=== PATIENT | male | born 1970 | race Caucasian/White ===

== ENCOUNTER 2023-04-02 11:04 | Emergency (ER) | payer SELFPAY ==
[~2023-04-02] VITALS: Ht 170.2 cm; Wt 95.0 kg
[~2023-04-02 11:04] MED LIST: AMOXICILLIN500 MG PO; CIPRO500 MG OR; CLEOCIN150 M1 PO; FLAGYL500 MG OR; LORTAB 5 OR; MOBIC7.5 MG OR; NO; PERCOCET 5/325M1 TAB OR; ULTRAM50 MG OR
[2023-04-02 11:30] VITALS: BP 136/102
[2023-04-02 12:00] VITALS: BP 137/92
[2023-04-02 12:30] VITALS: BP 141/91
[2023-04-02 12:33] LABS: BASO% 0.2 % (0-3); EOS% 0.4 % (0-8); HEMATOCRIT 45.7 % (39.0-50.0); HEMOGLOBIN 15.5 g/dl (14.0-18.0); IMMATURE GRANULOCYTES 0.5 % (0.0-5.0); LYMPH% 5.6 % (15-41); MEAN CELL VOLUME 92.9 fL CALC (80.0-100.0); MEAN CORPUSCULAR HGB 31.5 pG CALC (26.0-32.0); MEAN CORPUSCULAR HGB CONC 33.9 g/dL CAL (32.0-36.0); NEUT# 9.45 thou/uL (1.82-7.42); NEUT% 84.3 % (42-76); RED BLOOD COUNT 4.92 mill/uL (4.70-6.10); RED CELL DISTRI WIDTH 13.1 % (11.5-15.5)
[2023-04-02 12:49] LABS: ALKALINE PHOSPHATASE 71 u/l (38-126); BILIRUBIN, TOTAL 0.8 mg/dL (0.2-1.3); BUN 12 mg/dL (9-20); BUN/CREATININE RATIO 11 (12-20 (CALC)); CHLORIDE 106 mmol/l (95-108); CREATININE 1.1 mg/dL (0.7-1.3); GFR FOR AFR.AMER. > 60 ML/MIN (>=60 (CALC)); GFR OTHER RACES > 60 ML/MIN (>=60 (CALC)); SODIUM 137 mmol/l (137-146); TOTAL PROTEIN 8.3 g/dL (6.3-8.2)
[2023-04-02 12:55] LABS: ALBUMIN 4.5 g/dL (3.2-5.0); ANION GAP 16 (6-22 (CALC)); CARBON DIOXIDE 19 mmol/l (22-30); POTASSIUM 3.9 mmol/l (3.5-5.1); SGOT/AST 42 u/l (17-59)
[2023-04-02 13:00] VITALS: BP 129/69
[2023-04-02 13:58] VITALS: BP 142/95
[2023-04-02 14:01] VITALS: BP 142/95
[2023-04-02] MEDS ORDERED: ZITHROMAX250 MG PO (14:05)
[2023-04-02] MEDS ORDERED: ZOFRAN4 MG/TAB PO (14:05)
[2023-04-02] MEDS ORDERED: MEDDOSEPAK PO (14:05)
[2023-04-02] MEDS ORDERED: BENZONATATE200 MG PO (14:06)
== END 2023-04-02 14:09 | disposition home or self-care (01) | DRG 313 ==
LOC: ED 11:04
PROVIDERS: Family Medicine
DX: R07.9 Chest pain, unspecified (principal); R06.02 Shortness of breath; R50.9 Fever, unspecified; I10 Essential (primary) hypertension; Z20.822 Contact with and (suspected) exposure to COVID-19